=== PATIENT | female | born 1935 | race Asian ===

== ENCOUNTER 2022-07-21 07:01 | Day surgery (SDC) | payer OTHER ==
[~2022-07-21] VITALS: Ht 160 cm; Wt 74.8 kg
[~2022-07-21 07:01] MED LIST: CEFAZOLIN SOD 2 GM in D5W 50 ML IV ONE
[2022-07-21] MEDS ORDERED: LEVO50CA4 (10:20)
[2022-07-21] MEDS ORDERED: FAMO1TAB30 PO ×2 (10:20→16:31)
[2022-07-21] MEDS ORDERED: LIP20 PO ×2 (10:20→16:31)
[2022-07-21] MEDS ORDERED: NEU400 PO (10:20)
[2022-07-21] MEDS ORDERED: POTA-197 PO ×2 (10:20→16:31)
[2022-07-21] MEDS ORDERED: METO50TA7 PO ×2 (10:20→16:31)
[2022-07-21] MEDS ORDERED: ACET325T PO (10:20)
[2022-07-21] MEDS ORDERED: FURO-149 PO ×2 (10:20→16:31)
[2022-07-21] MEDS ORDERED: CALC-1231 PO (10:20)
[2022-07-21] MEDS ORDERED: OMEP20CA15 PO ×2 (10:20→16:31)
[2022-07-21] MEDS ORDERED: MONT-40 PO (10:20)
[2022-07-21] MEDS ORDERED: LORA10TA7 PO ×2 (10:20→16:31)
[2022-07-21] MEDS ORDERED: LOSA50TA3 PO ×2 (10:20→16:31)
[2022-07-21] MEDS ORDERED: BUPIVACAINE LIPOSOME/PF 266 MG/20 ML VIAL INFIL ONE (11:01)
[2022-07-21] MEDS ORDERED: GLYCOPYRROLATE 0.2 MG/ML VIAL IJ ONE (11:30)
[2022-07-21] MEDS ORDERED: ROCURONIUM BROMIDE 10 MG/ML (ZEMURON) IV ONE (11:30)
[2022-07-21] MEDS ORDERED: SEVOFLURANE 15 MIN GAS INH ONE (11:30)
[2022-07-21] MEDS ORDERED: NS IRRIG SOLN 1000 ML IR ONE (11:30)
[2022-07-21] MEDS ORDERED: NS 1000 ML IV.SOLN IV ONE (11:30)
[2022-07-21] MEDS ORDERED: PROPOFOL 200MG/ 20ML VIAL (DIPRIVAN) IV ONE (11:30)
[2022-07-21] MEDS ORDERED: NEOSTIGMINE METHYLSULFATE 1 MG/ML, 10 ML VIAL IVP ONE (11:30)
[2022-07-21] MEDS ORDERED: SUCCINYLCHOLINE CHLORIDE 20 MG/ML(QUELICIN) IVP ONE (11:30)
[2022-07-21] MEDS ORDERED: ONDANSETRON HCL 4 MG/2 ML VIAL IVP ONE (11:30)
[2022-07-21] MEDS ORDERED: NORMAL SALINE 10 ML VIAL IVP ONE (11:30)
[2022-07-21] MEDS ORDERED: LR 1,000 ML IV.SOLN IV ONE (11:30)
[2022-07-21] MEDS ORDERED: BUPIVACAINE /EPINEPHRINE/PF 0.5% 30 ML VIAL INJ ONE (11:30)
[2022-07-21] MEDS ORDERED: INDOCYANINE GREEN 25 MG VIAL IV ONE (11:30)
[2022-07-21] MEDS ORDERED: ACETAMINOPHEN I.V. 1000 MG 100 ML IV ONE (12:45)
[2022-07-21] MEDS ORDERED: METOCLOPRAMIDE HCL 10 MG/2 ML VIAL IVP PRN (12:45)
[2022-07-21] MEDS ORDERED: MEPERIDINE HCL/PF 25 MG/ML DISP.SYRIN IVP PRN (12:45)
[2022-07-21] MEDS ORDERED: HYDROmorphone 1 MG/ML INJ. CARTRIDGE IVP PRN (12:45)
[2022-07-21] MEDS ORDERED: ONDANSETRON HCL 4 MG/2 ML VIAL IVP PRN ×2 (12:45→15:00)
[2022-07-21] MEDS ORDERED: hydrALAZINE HCL 20 MG/ML VIAL IVP PRN (12:45)
--- NOTE | 2022-07-21 14:15 | NUR ---
PT ADMITTED S/P LAP SHEN. PT ALERT. RR EVEN AND UNLABORED ON 2L NC. PT HAS 5 SMALL INCISION ON ABD. DRESSINGS CDI. PT ON CLEAR LIQUID DIET. ATE MOST OF DINNER. PT FAMILY EDUCATED TO USE CALL LIGHT IF SHE NEEDS ASSISTANCE.
[2022-07-21] MEDS ORDERED: ACETAMINOPHEN 325 MG TABLET PO PRN (15:00)
[2022-07-21 15:21] VITALS: BP_SYST 139
[2022-07-21] MEDS ORDERED: GABA800T PO (16:31)
[2022-07-21] MEDS ORDERED: SYN50 PO (16:31)
[2022-07-21] MEDS ORDERED: OSCD500 PO (16:31)
[2022-07-21] MEDS ORDERED: TYLL650 PO (16:31)
[2022-07-21] MEDS ORDERED: MONT5TAB PO (16:31)
[2022-07-21] MEDS: PIPERACILLIN/TAZO 2.25G/DEX-IS 50 ML IV SCH (18:13)
--- NOTE | 2022-07-21 18:58 | NUR ---
PT DENIES PAIN AT THIS TIME. PT ABLE TO TURN TO USE BED CABRERA. ABD BINDER ON. DRESSING CDI. WILL ENDORSE CARE TO NIGHT RN.
[2022-07-21 19:20] VITALS: BP_SYST 134
--- NOTE | 2022-07-21 19:30 | NUR ---
PM ASSESSMENT; -Pt is a/ox4, resting in bed comfortably. Mandarin Speaking only. Dtr is at bedside. Pt denies any chest pain,pain,sob,or any acute distress. IV site patent,no s/s any infiltration noted. Surgical site of abd with 1st drsg cdi with abd-binder applied. Joe LE SCD applied. Discussed poc,all safety measures, pain mgmt, pt and dtr verbalized understanding. Bed alarmed, side rails x3,call light w/in reach. Cont to monitor pt.
[2022-07-21] MEDS ORDERED: traMADol HCL HCL 50 MG TABLET (ULTRAM) PO PRN (21:00)
[2022-07-21] MEDS: GABAPENTIN 300 MG CAPSULE PO SCH (21:33)
[2022-07-21] MEDS: ceFAZolin SODIUM 1 GM in D5W 50 ML IV SCH (21:34)
[2022-07-21] MEDS: METOPROLOL SUCCINATE 50 MG TAB.SR.24H (TOPROL XL) PO SCH (21:34)
[2022-07-21] MEDS: LOSARTAN POTASSIUM 50 MG TABLET (COZAAR) PO SCH (21:34)
[2022-07-21] MEDS: NORMAL SALINE 5 ML DISP.SYRIN IVF SCH (21:35)
[2022-07-22] MEDS: PIPERACILLIN/TAZO 2.25G/DEX-IS 50 ML IV SCH ×3 (00:03→14:39)
--- NOTE | 2022-07-22 00:03 | NUR ---
ROUNDS; -Pt is resting in bed comfortably. NO s/s any acute distress noted. Bed alarmed, side rails x3,call light w/in reach. Cont to
[2022-07-22 00:25] VITALS: BP_SYST 146
[2022-07-22] MEDS: ceFAZolin SODIUM 1 GM in D5W 50 ML IV SCH (05:30)
[2022-07-22] MEDS: NORMAL SALINE 5 ML DISP.SYRIN IVF SCH ×2 (05:31→14:40)
--- NOTE | 2022-07-22 05:40 | NUR ---
NOTES; INCONT OF URINE -Provided perineal care and changed all sheets and linen, now pt is cleaned and dry.
--- NOTE | 2022-07-22 06:32 | NUR ---
CLOSING NOTES; -Pt is resting in bed comfortably. NO s/s pain,sob,or any acute distress noted. Bed alarmed, side rails x3,call light w/in reach. Pt's condition stable entire shift. Will endorse to next nurse to cont care.
[2022-07-22] MEDS ORDERED: LEVOTHYROXINE SODIUM 0.05 MG TABLET PO SCH (07:00)
[2022-07-22 07:40] LABS: BASOPHILS % (AUTO) 0.6 % (0.0-2.0); EOSINOPHILS # (AUTO) 0.1 K/uL (0.0-0.4); EOSINOPHILS % (AUTO) 1.5 % (0.0-4.0); HEMATOCRIT 36.4 % (36-48); HEMOGLOBIN 12.5 g/dL (12.0-16.0); LYMPHOCYTES % (AUTO) 15.5 % (20.5-51.5); MEAN CORPUSCULAR HEMOGLOBIN 32 pg (27-31); MEAN CORPUSCULAR HGB CONC 34 % (32-36); MEAN CORPUSCULAR VOLUME 93 fL (79.0-98.0); MONOCYTES # (AUTO) 0.5 K/uL (0.0-1.0); MONOCYTES % (AUTO) 7.4 % (1.7-9.3); NEUTROPHILS # (AUTO) 4.9 K/uL (1.8-7.7); PLATELET COUNT (AUTO) 189 K/uL (130-430); RED BLOOD CELL COUNT(AUTO) 3.92 MIL/uL (4.2-6.2); RED CELL DISTRIBUTION WIDTH 13.6 % (9.0-15.0); WHITE BLOOD COUNT (AUTO) 6.6 K/uL (4.8-10.8)
[2022-07-22 08:00] VITALS: BP_SYST 133
[2022-07-22 08:09] LABS: ALANINE AMINOTRANSFERASE 45 U/L (12-78); ANION GAP 8 (5-15); ASPARTATE AMINOTRANSFERASE 56 U/L (10-37); CALCIUM 7.9 mg/dL (8.4-11.0); CHLORIDE 100 mmol/L (98-107); CREATININE 1.01 mg/dL (0.55-1.30); GLUCOSE 138 mg/dL (70-99); TOTAL BILIRUBIN 0.6 mg/dL (0.0-1.0); UREA NITROGEN, BLOOD 18 mg/dL (8-21)
--- NOTE | 2022-07-22 08:20 | NUR ---
paged dr fletcher thru answering service.
--- NOTE | 2022-07-22 08:43 | NUR ---
Shift Summary: patient is AAOX4 per daughter bedside. daughter bedside to assist with translating. vitals are stable. patient states she has discomfort in abdomen. bladder scan done. reading shows patient is retaining >600. Physician paged and informed. orders for in and out straight catheter placed. will continue to monitor patient. call light within reach. bed set to low, locked, alarm on.
[2022-07-22] MEDS ORDERED: FUROSEMIDE 40 MG TABLET PO SCH (09:00)
[2022-07-22] MEDS ORDERED: OMEPRAZOLE Non-Formulary 20 MG CAPSULE.DR PO SCH (09:00)
[2022-07-22] MEDS ORDERED: PANTOPRAZOLE SODIUM 40 MG TAB PO SCH (09:00)
[2022-07-22] MEDS: METOPROLOL SUCCINATE 50 MG TAB.SR.24H (TOPROL XL) PO SCH (10:27)
[2022-07-22] MEDS: LOSARTAN POTASSIUM 50 MG TABLET (COZAAR) PO SCH (10:28)
[2022-07-22] MEDS: GABAPENTIN 300 MG CAPSULE PO SCH ×2 (10:28→14:39)
[2022-07-22 11:10] VITALS: BP_SYST 145
[2022-07-22 15:24] VITALS: BP_SYST 133
--- NOTE | 2022-07-22 16:13 | NUR ---
DISCHARGE SUMMARY: Patient is AAOX4 per daughter. vitals are stable. PIV removed. patient and daughter given discharge instructions regarding activity, diet, follow up appointment, incision care, and medication. patient able to ambulate to the bathroom with walker and void. patient and daughter state they have no questions or concerns upon discharge. patient and daughter state they have all of patients personal belongings prior to discharge. patient leaving unit on wheelchair with assistance from staff.
== END 2022-07-22 16:20 | disposition home or self-care (01) ==
LOC: SDS 07:01 → SMU 07:52 → SDS 07-22 16:20
PROVIDERS: ATTEND Surgery
DX: K80.10 Calculus of gallbladder with chronic cholecystitis without obstruction (principal); E78.5 Hyperlipidemia, unspecified; I45.10 Unspecified right bundle-branch block; I11.0 Hypertensive heart disease with heart failure; I50.9 Heart failure, unspecified; E03.9 Hypothyroidism, unspecified; M15.9 Polyosteoarthritis, unspecified; Z91.040 Latex allergy status; Z79.899 Other long term (current) drug therapy; Z20.822 Contact with and (suspected) exposure to COVID-19
CPT/HCPCS: 47562; 49585; 80053; 85025; 87081; 36415; 93306; 88302; 88304; 87426; J3490 ×2; J0690; J2405; J2543; J2704; J0330; J7060; J7120; J7050; J7030; C1727; J0131; J2710; S2900; C9290; E0190